=== PATIENT | female | born 1945 | race Caucasian/White ===

== ENCOUNTER 2019-02-21 09:52 | Inpatient (IN) | payer MEDICARE, OTHER ==
[~2019-02-21] VITALS: Ht 161.3 cm; Wt 54.5 kg
[~2019-02-21 09:52] MED LIST: CALC-854 PO; FEXO180T94 PO; FLUO20CA39 PO; FLUT16SP2 BOTHNARES; HYDR-4353 PO; METH-360 PO; OMEG-44 PO; PROP60CA37 PO; RED600TA PO; UBID200C37 PO; WALKERFR; [UNRECOGNIZED DRUG - CODE] PO
[2019-02-21] MEDS ORDERED: pantoprazole IV 80 MG in normal saline 100ml IV soln 100 ML IV ONE (10:05)
[2019-02-21] MEDS ORDERED: ondansetron/PF 4mg/2ml inj IV ONE (10:05)
[2019-02-21] MEDS ORDERED: normal saline 1000ML IV soln IVB ONE (10:05)
[2019-02-21] MEDS ORDERED: morphine 4 MG/ML inj SYRINge IV PRN (10:05)
[2019-02-21] MEDS ORDERED: pantoprazole IV 40 MG in normal saline 100ml IV soln 100 ML IV ONE ×2 (10:10→10:45)
[2019-02-21 10:24] LABS: BASOPHILS # (AUTO) 0.1 X10'3 (0-0.2); BASOPHILS % (AUTO) 0.3 % (0-1); EOSINOPHILS % (AUTO) 0.2 % (0-6); HEMATOCRIT 40.7 % (35.0-45.0); LYMPHOCYTES # (AUTO) 1.2 X10'3 (1.1-4.8); LYMPHOCYTES % (AUTO) 5.7 % (21-51); MEAN CORPUSCULAR HEMOGLOBIN 30.8 PG (27.0-31.0); MEAN CORPUSCULAR HGB CONC 34.3 g/dL (33.0-36.5); MEAN CORPUSCULAR VOLUME 89.7 FL (78-98); MEAN PLATELET VOLUME 8.1 FL (7.4-10.4); MONOCYTES # (AUTO) 1.7 X10'3 (0-0.9); MONOCYTES % (AUTO) 8.1 % (2-12); NEUTROPHILS # (AUTO) 17.7 X10'3 (1.8-7.7); NEUTROPHILS % (AUTO) 85.7 % (42-75); PLATELET COUNT 317 X10'3 (140-440); RED BLOOD COUNT 4.54 X10'6 (4.20-5.60); RED CELL DISTRIBUTION WIDTH 13.4 % (11.5-14.5); WHITE BLOOD COUNT 20.6 X10'3 (4.5-11.0)
[2019-02-21 10:42] LABS: ALANINE AMINOTRANSFERASE 20 U/L (12-78); ALBUMIN 3.7 G/DL (3.4-5.0); ALBUMIN/GLOBULIN RATIO 0.9 (1.1-1.5); ALKALINE PHOSPHATASE 71 IU/L (46-116); ANION GAP 12 (8-16); ASPARTATE AMINO TRANSFERASE 9 U/L (10-37); BILIRUBIN,TOTAL 0.8 MG/DL (0.1-1.0); BLOOD UREA NITROGEN 19 MG/DL (7-18); BUN/CREATININE RATIO 12.6 (6.6-38.0); CALCIUM 9.4 MG/DL (8.5-10.1); CHLORIDE 100 MMOL/L (99-107); CREATININE 1.51 MG/DL (0.40-0.90); GLUCOSE 142 MG/DL (70-104); POTASSIUM 4.3 MMOL/L (3.5-5.1); SODIUM 136 MMOL/L (135-145); TOTAL CARBON DIOXIDE 24.1 MMOL/L (24-32); eGFR 34 ML/MIN
--- NOTE | 2019-02-21 10:45 | NUR ---
PT BACK IN BED FROM CT, HOOKED UP TO MONITOR VITAL SIGNS
[2019-02-21] MEDS ORDERED: levoFLOXACIN-Levaquin 750MG/D5 150 ML IV ONE (10:50)
[2019-02-21] MEDS ORDERED: acetaminophen 325mg tablet PO ONE (11:25)
[2019-02-21] MEDS ORDERED: morphine 4 MG/ML inj SYRINge IV ONE (11:25)
[2019-02-21] MEDS ORDERED: mag hydrox/Alum hydrox/simeth 30ml oral suspension PO PRN (11:35)
[2019-02-21] MEDS ORDERED: magnesium hydroxide 30ml (MOM) UD suspension PO PRN (11:35)
[2019-02-21] MEDS ORDERED: acetaminophen 325mg tablet PO PRN (11:35)
[2019-02-21] MEDS ORDERED: HYDROcodone/acetaminophen 5mg/325mg tablet PO PRN (11:35)
[2019-02-21] MEDS ORDERED: ondansetron/PF 4mg/2ml inj IV PRN (11:35)
[2019-02-21] MEDS ORDERED: morphine 2 MG/ML inj. syringe IV PRN ×2 (11:35)
[2019-02-21] MEDS ORDERED: FLUO40CA PO ×2 (12:19→12:20)
[2019-02-21 13:57] VITALS: BP 133/43
[2019-02-21 15:59] LABS: CLARITY,URINE CLEAR (Clear); COLOR,URINE YELLOW (Yellow); GLUCOSE, URINE NEGATIVE (Neg); KETONES,URINE NEGATIVE (Neg); LEUKOCYTE ESTERASE ,URINE NEGATIVE (Neg); NITRITES, URINE NEGATIVE (Neg); OCCULT BLOOD,URINE SMALL (Neg); PROTEIN,URINE TRACE mg/dl (Neg); UA COLLECTION TYPE NON-SPECIFIED; UROBILINOGEN,URINE 0.2 E.U/dL (0.2-1.0)
[2019-02-21 16:06] LABS: BACTERIA,URINE NONE SEEN /HPF (Neg); FINE GRANULAR CAST 0-3 /LPF (NEGATIVE); HYALINE CASTS 0-3 /LPF (NEGATIVE); MUCUS STRANDS FEW /LPF (Neg); RBC,URINE 0-2 /HPF (0-2); SQUAMOUS EPITHELIAL CELL,UR NONE SEEN /LPF (FEW); WBC,URINE 0-4 /HPF (0-4)
[2019-02-21] MEDS: normal saline 1000ml 1,000 ML IV SCH ×2 (16:51→21:35)
[2019-02-21] MEDS: piperacillin/tazo 4.5gm/100ml 100 ML IV SCH (16:51)
[2019-02-21] MEDS: calcium carbonate/vitamin D3 tablet PO SCH (17:33)
--- NOTE | 2019-02-21 18:14 | NUR ---
Patient in room [facility]. I have received report from AVA Jackson and had the opportunity to ask questions and assume patient care.
[2019-02-21 18:15] VITALS: BP_SYST 144; BP_SYST 151; BP_SYST 165; BP_DIAS 47; BP_DIAS 53; BP_DIAS 60
--- NOTE | 2019-02-21 18:19 | NUR ---
Problems reprioritized. Patient report given, questions answered & plan of care reviewed with Vero ESCALANTE.
[2019-02-21] MEDS: temazepam 15mg capsule PO PRN (21:32)
[2019-02-21] MEDS: acetaminophen 325mg tablet PO PRN (21:32)
[2019-02-22 00:15] VITALS: BP 108/50
[2019-02-22] MEDS: piperacillin/tazo 4.5gm/100ml 100 ML IV SCH ×4 (00:46→23:58)
[2019-02-22] MEDS: normal saline 1000ml 1,000 ML IV SCH ×3 (02:28→21:37)
[2019-02-22 04:57] LABS: BASOPHILS # (AUTO) 0.1 X10'3 (0-0.2); BASOPHILS % (AUTO) 0.5 % (0-1); EOSINOPHILS # (AUTO) 0.1 X10'3 (0-0.9); EOSINOPHILS % (AUTO) 1.1 % (0-6); HEMATOCRIT 34.7 % (35.0-45.0); HEMOGLOBIN 11.6 g/dl (12.0-16.0); LYMPHOCYTES # (AUTO) 2.1 X10'3 (1.1-4.8); LYMPHOCYTES % (AUTO) 16.9 % (21-51); MEAN CORPUSCULAR HEMOGLOBIN 30.7 PG (27.0-31.0); MEAN CORPUSCULAR HGB CONC 33.5 g/dL (33.0-36.5); MEAN CORPUSCULAR VOLUME 91.5 FL (78-98); MEAN PLATELET VOLUME 8.1 FL (7.4-10.4); MONOCYTES % (AUTO) 8.3 % (2-12); NEUTROPHILS % (AUTO) 73.2 % (42-75); PLATELET COUNT 204 X10'3 (140-440); RED BLOOD COUNT 3.79 X10'6 (4.20-5.60); RED CELL DISTRIBUTION WIDTH 13.7 % (11.5-14.5); WHITE BLOOD COUNT 12.3 X10'3 (4.5-11.0)
[2019-02-22 05:03] LABS: ALBUMIN 2.6 G/DL (3.4-5.0); ANION GAP 8 (8-16); BLOOD UREA NITROGEN 12 MG/DL (7-18); BUN/CREATININE RATIO 10.7 (6.6-38.0); CALCIUM 8.5 MG/DL (8.5-10.1); CHLORIDE 109 MMOL/L (99-107); CREATININE 1.12 MG/DL (0.40-0.90); GLUCOSE 107 MG/DL (70-104); POTASSIUM 3.6 MMOL/L (3.5-5.1); SODIUM 143 MMOL/L (135-145); TOTAL CARBON DIOXIDE 25.8 MMOL/L (24-32); eGFR 48 ML/MIN
--- NOTE | 2019-02-22 06:25 | NUR ---
Patient in room [facility]. I have received report from AVA Pham and had the opportunity to ask questions and assume patient care.
[2019-02-22 06:30] VITALS: BP 139/62
--- NOTE | 2019-02-22 06:32 | NUR ---
Problems reprioritized. Patient report given, questions answered & plan of care reviewed with AVA Stover.
[2019-02-22] MEDS: FLUoxetine 20mg capsule PO SCH (08:54)
[2019-02-22] MEDS: propranolol LA 60 MG cap.SA.24H PO SCH (08:54)
[2019-02-22] MEDS: calcium carbonate/vitamin D3 tablet PO SCH ×3 (08:54→17:24)
[2019-02-22] MEDS ORDERED: pneumococcal 23-VAL P-sac vacc 25 mcg/0.5ml vial IMVAC ONE (10:00)
[2019-02-22 11:00] VITALS: BP 146/62
[2019-02-22 11:05] LABS: HEMOGLOBIN A1C 5.9 % (4.5-6.2)
[2019-02-22 18:05] VITALS: BP 160/63
--- NOTE | 2019-02-22 18:05 | NUR ---
Problems reprioritized. Patient report given, questions answered & plan of care reviewed with AVA Pham.
--- NOTE | 2019-02-22 18:20 | NUR ---
Patient in room [facility]. I have received report from AVA Stover and had the opportunity to ask questions and assume patient care.
[2019-02-22] MEDS: acetaminophen 325mg tablet PO PRN (19:37)
[2019-02-22] MEDS: temazepam 15mg capsule PO PRN (21:37)
[2019-02-23 00:36] VITALS: BP 132/81
[2019-02-23 04:43] LABS: BASOPHILS % (AUTO) 0.4 % (0-1); EOSINOPHILS # (AUTO) 0.2 X10'3 (0-0.9); EOSINOPHILS % (AUTO) 2.1 % (0-6); HEMATOCRIT 32.5 % (35.0-45.0); HEMOGLOBIN 11.1 g/dl (12.0-16.0); LYMPHOCYTES # (AUTO) 1.5 X10'3 (1.1-4.8); LYMPHOCYTES % (AUTO) 17.7 % (21-51); MEAN CORPUSCULAR HEMOGLOBIN 30.9 PG (27.0-31.0); MEAN CORPUSCULAR HGB CONC 34.3 g/dL (33.0-36.5); MEAN CORPUSCULAR VOLUME 90.1 FL (78-98); MEAN PLATELET VOLUME 7.8 FL (7.4-10.4); MONOCYTES # (AUTO) 0.7 X10'3 (0-0.9); MONOCYTES % (AUTO) 8.5 % (2-12); NEUTROPHILS % (AUTO) 71.3 % (42-75); PLATELET COUNT 208 X10'3 (140-440); RED BLOOD COUNT 3.61 X10'6 (4.20-5.60); RED CELL DISTRIBUTION WIDTH 13.4 % (11.5-14.5); WHITE BLOOD COUNT 8.4 X10'3 (4.5-11.0)
[2019-02-23 05:00] LABS: ALBUMIN 2.5 G/DL (3.4-5.0); ANION GAP 6 (8-16); BLOOD UREA NITROGEN 9 MG/DL (7-18); CALCIUM 8.3 MG/DL (8.5-10.1); CHLORIDE 109 MMOL/L (99-107); CREATININE 1.12 MG/DL (0.40-0.90); GLUCOSE 110 MG/DL (70-104); SODIUM 144 MMOL/L (135-145); TOTAL CARBON DIOXIDE 28.9 MMOL/L (24-32); eGFR 48 ML/MIN
--- NOTE | 2019-02-23 06:15 | NUR ---
Patient in room [facility]. I have received report from AVA Pham and had the opportunity to ask questions and assume patient care.
--- NOTE | 2019-02-23 06:19 | NUR ---
Problems reprioritized. Patient report given, questions answered & plan of care reviewed with AVA Stover.
[2019-02-23 06:30] VITALS: BP 143/65
[2019-02-23] MEDS: FLUoxetine 20mg capsule PO SCH (08:41)
[2019-02-23] MEDS: calcium carbonate/vitamin D3 tablet PO SCH (08:41)
[2019-02-23] MEDS: piperacillin/tazo 4.5gm/100ml 100 ML IV SCH (08:41)
[2019-02-23] MEDS: propranolol LA 60 MG cap.SA.24H PO SCH (08:41)
[2019-02-23] MEDS: normal saline 1000ml 1,000 ML IV SCH (08:41)
[2019-02-23] MEDS: acetaminophen 325mg tablet PO PRN (08:48)
[2019-02-23] MEDS ORDERED: METR500T PO (10:13)
[2019-02-23] MEDS ORDERED: LEVO500T2 PO (10:13)
[2019-02-23 11:00] VITALS: BP 143/62
--- NOTE | 2019-02-23 12:30 | NUR ---
DC inst provided to pt. IV DC'd, tip intact. All belongings sent w/pt. Pt ambulated to front lobby.
== END 2019-02-23 12:32 | disposition home or self-care (01) | DRG 391 ==
LOC: ER 09:53 → ED HOLD 11:35 → CANBEDREQ 11:50 → EDBEDREQ 12:19 → SUR 3N 13:40
PROVIDERS: ADMIT Internal Medicine; ATTEND Internal Medicine
PROC: 3E0234Z Introduction of Serum, Toxoid and Vaccine into Muscle, Percutaneous Approach (ICD-10-PCS; principal; 2019-02-22)
DX: A09 Infectious gastroenteritis and colitis, unspecified (principal); N17.0 Acute kidney failure with tubular necrosis; K92.1 Melena; E11.9 Type 2 diabetes mellitus without complications; F32.9 Major depressive disorder, single episode, unspecified; G89.29 Other chronic pain; R03.0 Elevated blood-pressure reading, without diagnosis of hypertension; Z79.899 Other long term (current) drug therapy; Z23 Encounter for immunization; Z88.8 Allergy status to other drugs, medicaments and biological substances; Z79.82 Long term (current) use of aspirin
CPT/HCPCS: 36415; 74176; 80048; 80053; 81001; 83036; 83605; 84145; 85025; 85610; 86885; 86900; 86901; 87040; 87081; 90732; 96365; 96375; 99285; C9113; G0378; J1956; J2405; J2543; J7030

== ENCOUNTER → 2021-04-20 | Outpatient (CLI) | payer MEDICARE, OTHER ==
[~2021-04-20] MED LIST changes: -FEXO180T94 PO; -FLUO20CA39 PO; +FLUO40CA PO; -FLUT16SP2 BOTHNARES; -HYDR-4353 PO; -METH-360 PO; -OMEG-44 PO; -RED600TA PO; -UBID200C37 PO; -WALKERFR; -[UNRECOGNIZED DRUG - CODE] PO
== END | disposition home or self-care (01) ==
LOC: VAS 13:19
PROVIDERS: ATTEND Internal Medicine
DX: I65.23 Occlusion and stenosis of bilateral carotid arteries (principal)
CPT/HCPCS: 93880

== ENCOUNTER 2021-05-05 08:19 | Outpatient (CLI) | payer MEDICARE, OTHER ==
[2021-05-04 10:33] LABS: ALBUMIN 3.5 G/DL (3.4-5.0); ANION GAP 7 (8-16); BLOOD UREA NITROGEN 21 MG/DL (7-18); CALCIUM 8.5 MG/DL (8.5-10.1); CHLORIDE 109 MMOL/L (99-107); CREATININE 0.84 MG/DL (0.40-0.90); GLUCOSE 89 MG/DL (70-104); POTASSIUM 4.4 MMOL/L (3.5-5.1); SODIUM 143 MMOL/L (135-145); TOTAL CARBON DIOXIDE 26.9 MMOL/L (24-32); eGFR 66 ML/MIN
[2021-05-05] MEDS ORDERED: iohexol 350MG/ML 100ml bottle IV ONE (09:01)
== END 2021-05-05 23:59 | disposition home or self-care (01) ==
LOC: RAD 08:19
PROVIDERS: ATTEND Surgery
DX: Z01.818 Encounter for other preprocedural examination (principal); I65.23 Occlusion and stenosis of bilateral carotid arteries; I67.2 Cerebral atherosclerosis; I70.8 Atherosclerosis of other arteries
CPT/HCPCS: 36415; 70498; 80048; Q9967

== ENCOUNTER 2021-06-01 14:02 | Inpatient (IN) | payer MEDICARE, OTHER ==
[~2021-06-01] VITALS: Ht 160 cm; Wt 53.4 kg
[2021-06-01] VITALS (8 sets, daily range): BP systolic 83–170; BP diastolic 37–77
[2021-06-01] MEDS ORDERED: diphenhydrAMINE 25mg capsule PO PRN ×2 (14:25→20:00)
[2021-06-01] MEDS ORDERED: LORazepam 0.5 MG tablet PO PRN ×2 (14:25→20:00)
[2021-06-01 15:01] LABS: APTT 23 SECONDS (22-32)
[2021-06-01 15:06] LABS: ALBUMIN 3.8 G/DL (3.4-5.0); ANION GAP 6 (8-16); BASOPHILS # (AUTO) 0.1 X10'3 (0-0.2); BLOOD UREA NITROGEN 24 MG/DL (7-18); CALCIUM 9.2 MG/DL (8.5-10.1); CHLORIDE 104 MMOL/L (99-107); CREATININE 0.75 MG/DL (0.40-0.90); EOSINOPHILS # (AUTO) 0.2 X10'3 (0-0.9); EOSINOPHILS % (AUTO) 2.6 % (0-6); GLUCOSE 105 MG/DL (70-104); HEMOGLOBIN 13.6 g/dl (12.0-16.0); LYMPHOCYTES # (AUTO) 1.9 X10'3 (1.1-4.8); LYMPHOCYTES % (AUTO) 25.7 % (21-51); MEAN CORPUSCULAR HEMOGLOBIN 29.9 PG (27.0-31.0); MEAN CORPUSCULAR HGB CONC 33.2 g/dL (33.0-36.5); MEAN CORPUSCULAR VOLUME 90.2 FL (78-98); MEAN PLATELET VOLUME 7.9 FL (7.4-10.4); MONOCYTES # (AUTO) 0.7 X10'3 (0-0.9); MONOCYTES % (AUTO) 9.8 % (2-12); NEUTROPHILS # (AUTO) 4.5 X10'3 (1.8-7.7); NEUTROPHILS % (AUTO) 60.9 % (42-75); PLATELET COUNT 283 X10'3 (140-440); POTASSIUM 3.9 MMOL/L (3.5-5.1); RED BLOOD COUNT 4.55 X10'6 (4.20-5.60); RED CELL DISTRIBUTION WIDTH 13.3 % (11.5-14.5); SODIUM 136 MMOL/L (135-145); TOTAL CARBON DIOXIDE 26.5 MMOL/L (24-32); WHITE BLOOD COUNT 7.4 X10'3 (4.5-11.0); eGFR 75 ML/MIN
[2021-06-01] MEDS ORDERED: FOLI0.4T6 PO (15:06)
[2021-06-01] MEDS ORDERED: ATOR20TA66 PO (15:06)
[2021-06-01] MEDS ORDERED: POLOS EACHEYE (15:06)
[2021-06-01] MEDS ORDERED: CLOP75TA34 PO (15:06)
[2021-06-01] MEDS ORDERED: VALA500T41 PO (15:06)
[2021-06-01] MEDS ORDERED: Tumeric PO (15:06)
[2021-06-01] MEDS ORDERED: OMEG-79 PO (15:06)
[2021-06-01] MEDS ORDERED: TOBR5DRO57 RIGHTEYE (15:06)
[2021-06-01] MEDS ORDERED: CIDE300T3 (15:06)
[2021-06-01] MEDS ORDERED: ASPI-1264 PO (15:06)
[2021-06-01] MEDS: normal saline 1,000 ML IV SCH (15:43)
[2021-06-01] MEDS ORDERED: phenylephrine 10mg/ml inj. ONE (16:21)
[2021-06-01] MEDS ORDERED: heparin 1,000unit/ml 10ml vial 10 ML ONE (16:22)
[2021-06-01] MEDS ORDERED: iohexol 350 MG/1 ML 200ml bottle ONE (16:22)
[2021-06-01] MEDS ORDERED: atropine 0.1mg/ml 10ml syringe ONE (16:22)
[2021-06-01] MEDS ORDERED: LIDOcaine 1% (10mg/ml)w/preservative inj. 20ml MDV ONE (16:22)
[2021-06-01] MEDS ORDERED: DOPamine 400mg/D5W 250ml 250 ML IV ONE (16:41)
[2021-06-01] MEDS ORDERED: ondansetron/PF 4mg/2ml inj ONE (17:38)
[2021-06-01] MEDS ORDERED: clopidogrel 75mg tablet ONE (17:55)
--- NOTE | 2021-06-01 19:00 | NUR ---
PATIENT ADMITTED TO UNIT S/P CARDICA CATH. VS STABLE. RIGHT GROIN SOFT. NO HEMATOMA NOTED. DENIES BACK PAIN. POST CARDIAC CATH TEACHING REINFORCE. ALL SAFETY MEASURES IMPLEMENTED. WILL CONTINUE TO MONITOR.
[2021-06-01] MEDS ORDERED: normal saline 1,000 ML IV SCH (20:00)
[2021-06-01] MEDS ORDERED: pseudoephedrine 30mg tablet PO PRN (20:05)
[2021-06-01] MEDS ORDERED: proCHLORperazine 10 MG/2 ml inj IV PRN (20:05)
[2021-06-01] MEDS ORDERED: HYDROcodone/acetaminophen 5mg/325mg tablet PO PRN (20:05)
[2021-06-01] MEDS ORDERED: HYDROcodone/acetaminophen 10/325mg tab PO PRN (20:05)
[2021-06-01] MEDS ORDERED: OXAZEpam 15mg capsule PO PRN (20:05)
[2021-06-01] MEDS ORDERED: DOPamine 400mg/D5W 250ml 250 ML IV SCH (20:05)
[2021-06-01] MEDS ORDERED: acetaminophen 325mg tablet PO PRN (20:05)
[2021-06-01] MEDS ORDERED: hydrALAZINE 20mg/ml inj. IV PRN (20:05)
[2021-06-02] MEDS: normal saline 1,000 ML IV SCH (00:25)
[2021-06-02 02:00] VITALS: BP 100/49
[2021-06-02 06:00] VITALS: BP 119/32
--- NOTE | 2021-06-02 06:00 | NUR ---
Patient in room [facility] 3014. I have received report from Nahomy ESCALANTE and had the opportunity to ask questions and assume patient care.
[2021-06-02] MEDS ORDERED: tobramycin 0.3% 5ml ophthalmic drops RIGHTEYE PRN (07:55)
[2021-06-02] MEDS ORDERED: PROP60TA19 PO (07:55)
[2021-06-02] MEDS ORDERED: valacyclovir 500mg tablet PO PRN (07:55)
[2021-06-02] MEDS ORDERED: aspirin 325mg tablet PO SCH (08:00)
[2021-06-02] MEDS ORDERED: FLUoxetine 20mg capsule PO SCH (08:00)
[2021-06-02] MEDS ORDERED: calcium carbonate/vitamin D3 tablet PO SCH (08:00)
[2021-06-02] MEDS ORDERED: clopidogrel 75mg tablet PO SCH (08:00)
[2021-06-02] MEDS ORDERED: folic acid 1mg tablet PO SCH (08:00)
[2021-06-02] MEDS ORDERED: atorvastatin 20mg tablet PO SCH (08:00)
[2021-06-02] MEDS ORDERED: propranolol 40mg tablet PO SCH (08:01)
[2021-06-02] MEDS ORDERED: propranolol 10mg tablet PO SCH (08:02)
[2021-06-02] MEDS ORDERED: OMEGA-3/DHA/EPA/FISH OIL 1 EACH CAPSULE.DR PO SCH (08:30)
--- NOTE | 2021-06-02 11:57 | NUR ---
Patient stable for discharge per Dr orders. All discharge instructions reviewed with patient, and all questions answered. All belongings collected and sent with patient. PIV discontinued, cannula intact. Tele discontinued. Wheeled to lobby via nursing staff and picked up in private vehicle by family.
--- NOTE | 2021-06-04 10:07 | NUR ---
Case Management DC follow up: Spoke w/pt via telephone. s/p: Angio w/stent LCA. R groin cath. Pt Reports:Feeling pretty sore, up and moving around more today 06/04/21. Denies: Acute/continuous CP, emergent SOB, resp distress, orthopnea, dyspnea, N/V, hematemesis, weakness, vertigo, syncope episodes, orthostatic hypotension, APPLE, blurry vision, s/s stroke/FAST, dysphagia, bladder pain, dysuria, polyuria, hematuria, retention, abd pain/distention, hematochezia, melena, unexplained bruising, bleeding, fever, chills. Pt denies BLE edema, specifically to RLE; denies oozing, excess swelling, warmth to cath insertion site, R groin. Verbalizes understanding of Rx, why prescribed; continues/resumes current Rx as ordered, continue plavix as ordered. denies ase r/t polypharmacy. Verbalizes compliance w/aftercare. Verbalizes understanding of s/s that warrant -11/ER visit for further evaluation. Pt acknowledges need to schedule/confirm/keep follow up appt w/ Dr Pineda 07/13/21 [id number]; PCP Russ, will call to schedule. Needs met, questions/concerns addressed at DC; No further questions/concerns r/t recent hospital stay and/or DC status at this time.
== END 2021-06-02 11:38 | disposition home or self-care (01) | DRG 36 ==
LOC: SSTAY O 14:02 → PCU 3S 17:40
PROVIDERS: ADMIT Internal Medicine Interventional Cardiology; ATTEND Internal Medicine Interventional Cardiology
PROC: 037J3DZ Dilation of Left Common Carotid Artery with Intraluminal Device, Percutaneous Approach (ICD-10-PCS; principal; 2021-06-01)
PROC: B3141ZZ Fluoroscopy of Left Common Carotid Artery using Low Osmolar Contrast (ICD-10-PCS; 2021-06-01)
PROC: B3101ZZ Fluoroscopy of Thoracic Aorta using Low Osmolar Contrast (ICD-10-PCS; 2021-06-01)
DX: I65.23 Occlusion and stenosis of bilateral carotid arteries (principal); E11.9 Type 2 diabetes mellitus without complications; E78.5 Hyperlipidemia, unspecified; I10 Essential (primary) hypertension; I95.9 Hypotension, unspecified
CPT/HCPCS: 36415; 37215; 80048; 82948; 85025; 85610; 85730; 93005; A4620; A6258; C1725; C1760; C1769; C1876; C1884; C1887; C1894; G0378; J0461; J1265; J1644; J2370; J2405; J3490; J7030; Q0163; Q9967

== ENCOUNTER 2024-04-29 08:43 | Emergency (ER) | payer MEDICARE, OTHER ==
[~2024-04-29] VITALS: Ht 161.3 cm; Wt 53.0 kg
[~2024-04-29 08:43] MED LIST changes: +ASPI-1264 PO; +ATOR20TA66 PO; +CIDE300T3; +CLOP75TA34 PO; +FOLI0.4T6 PO; +OMEG-79 PO; -PROP60CA37 PO; +PROP60TA19 PO; +TOBR5DRO12 RIGHTEYE; +Tumeric PO; +VALA500T41 PO
[2024-04-29 08:47] VITALS: BP 187/88; PULSE 85; RESP 18; O2SAT 98
[2024-04-29 10:42] VITALS: TEMP 97.4
== END 2024-04-29 10:44 | disposition home or self-care (01) ==
LOC: ER 08:44
DX: M25.551 Pain in right hip (principal); E11.9 Type 2 diabetes mellitus without complications; E78.5 Hyperlipidemia, unspecified; I10 Essential (primary) hypertension; Z88.5 Allergy status to narcotic agent; Z88.8 Allergy status to other drugs, medicaments and biological substances; Z79.82 Long term (current) use of aspirin
CPT/HCPCS: 73502; 99284

== ENCOUNTER 2024-10-26 08:06 | Emergency (ER) | payer MEDICARE, OTHER ==
[~2024-10-26] VITALS: Ht 160 cm; Wt 49.8 kg
[2024-10-26 08:07] VITALS: BP 149/79; PULSE 92; RESP 16; TEMP 98; O2SAT 98
--- NOTE | 2024-10-26 09:16 | Physician Documentation ---
History of Present Illness ~ Chief Complaint: Bite-insect Stated Complaint: BEE STING Time Seen by MD: 08:17 Primary Medical Doctor: Russ RODRIGUEZ Stung by hornets to scalp several times this morning. Complaining of pain but no facial swelling, no difficulty breathing. No other complaints. Tetanus within 5 years?: Yes Medication Reconciliation Allergies: Coded Allergies: fentanyl (Verified Allergy, Unknown, 04/29/24) midazolam (Verified Allergy, Unknown, 04/29/24) gabapentin (Verified Adverse Reaction, Unknown, 04/29/24) hydromorphone (Verified Adverse Reaction, Unknown, GETS SICK, 04/29/24) Scheduled Aspirin* (Aspirin*), 1 TAB PO DAILY, (Reported) Atorvastatin Calcium (Atorvastatin Calcium), 1 TAB PO DAILY, (Reported) Calcium Citrate/Vitamin D3 (Citracal + D Maximum Caplet), 1 EACH PO BID, (Reported) Clopidogrel Bisulfate (Clopidogrel), 1 TAB PO DAILY, (Reported) Fluoxetine Hcl (Fluoxetine Hcl), 20 MG PO DAILY, (Reported) Folic Acid* (Folic Acid*), 1 MG PO DAILY, (Reported) [place]-3 Fatty Acids/Fish Oil (Fish Oil 1,000 Mg Softgel), 1 CAP PO DAILY, (Reported) Propranolol Hcl (Propranolol Hcl), 60 MG PO DAILY, (Reported) [Tumeric], Unknown Dose PO DAILY, (Reported) Scheduled PRN Tobramycin Sulfate 0.3% Opth.* (Tobrex 0.3% Opth.*), 1 DROP RIGHTEYE QID PRN for eye irritation, (Reported) Valacyclovir HCl (Valacyclovir), 1 TAB PO BID PRN for HERPES OUTBREAK, (Reported) Miscellaneous Medications Cider Vinegar (Apple Cider Vinegar), Unknown Dose, (Reported) Past Medical History Past Medical History: *GI/HEPATOBILIARY*, Diabetes Past Surgical History: noncontributory Patient History: Diabetes mellitus in father FATHER, , Age: 77, Cause: Heart attack, Onset:60 years & older FH: heart disease FATHER, , Age: 77, Cause: Heart attack, Onset:60 years & older Alcohol Use: None Drug Use: none Lives In: Home Review of Systems All Other Systems at this time: Reviewed and Negative Physical Exam Vital Signs: RN Vital Signs have been reviewed: Yes, Temperature: 98.0, Source: Temporal, Heart Rate: 92, Respiratory Rate: 16, BP: 149/79, Pulse Oximetry: 98, Weight: 49.800 Oxygen Flow Rate: 0 Physical Exam HEENT: PERRL, moist oral mucosa, EOMI no lip or tongue swelling Pulmonary: No respiratory distress MSK: no deformity Skin: w/d/i, no rash Neuro: alert, nonfocal Psych: normal affect Progress Results/Orders Results/Orders Completed Orders - SOHAIL PIMENTEL MD Acetaminophen 325mg Tablet (Tylenol Tabl (10/26/24 08:20) Diphenhydramine Capsule (Benadryl Capsul (10/26/24 08:20) Medications Received in ER Medications (Trade) Dose Ordered Sig/Anabela Route PRN Reason Start Time Stop Time Status Last Admin Dose Admin (Tylenol tablet) 650 mg ONCE ONCE PO 10/26/24 08:20 10/26/24 08:21 DC 10/26/24 08:23 650 MG (Benadryl capsule) 25 mg ONCE ONCE PO 10/26/24 08:20 10/26/24 08:21 DC 10/26/24 08:23 25 MG Vital Signs 10/26/24 08:07 Temp 98.0 Pulse 92 Resp 16 B/P (MAP) 149/79 Pulse Ox 98 O2 Flow Rate 0 Medical Decision Making Findings 79 year old female with hymenoptera envenomation. Benadryl, tylenol, observed, discharged with return precautions Differential Dx:Considerations: Include: Abrasion, Anaphylaxis, Cellulitis, Insect envenomation, Urticaria Departure Disposition: 01 HOME / SELF CARE / HOMELESS Impression: Primary Impression: Hymenoptera sting Condition: Stable Discharge Instructions: Insect Bite, Adult, [id number] Referrals: NO PRIMARY CARE PROVIDER (PCP) Education Educated: Patient Educated regarding: diagnosis, treatment, prognosis, need for follow up Signature Scribe Signature: . Attestation: . SOHAIL PIMENTEL MD Oct 26, 2024 09:16
== END 2024-10-26 09:58 | disposition home or self-care (01) ==
LOC: ER 08:07
DX: T63.441A Toxic effect of venom of bees, accidental (unintentional), initial encounter (principal); E11.9 Type 2 diabetes mellitus without complications; Z88.5 Allergy status to narcotic agent; Z88.8 Allergy status to other drugs, medicaments and biological substances; Y92.89 Other specified places as the place of occurrence of the external cause
CPT/HCPCS: 99283; Q0163

== ENCOUNTER 2025-02-06 07:55 | Emergency (ER) | payer MEDICARE, OTHER ==
[~2025-02-06] VITALS: Ht 160 cm; Wt 51.3 kg
--- NOTE | 2025-02-06 08:14 | Physician Documentation ---
History of Present Illness General Chief Complaint: Shoulder pain Stated Complaint: L SHOULDER PAIN Time Seen by MD: 08:12 Primary Medical Doctor: Russ Medication Reconciliation Allergies: Coded Allergies: fentanyl (Verified Allergy, Unknown, 02/06/25) midazolam (Verified Allergy, Unknown, 02/06/25) gabapentin (Verified Adverse Reaction, Unknown, 02/06/25) hydromorphone (Verified Adverse Reaction, Unknown, GETS SICK, 02/06/25) Scheduled Aspirin* (Aspirin*), 1 TAB PO DAILY, (Reported) Atorvastatin Calcium (Atorvastatin Calcium), 1 TAB PO DAILY, (Reported) Calcium Citrate/Vitamin D3 (Citracal + D Maximum Caplet), 1 EACH PO BID, (Reported) Clopidogrel Bisulfate (Clopidogrel), 1 TAB PO DAILY, (Reported) Fluoxetine Hcl (Fluoxetine Hcl), 20 MG PO DAILY, (Reported) Folic Acid* (Folic Acid*), 1 MG PO DAILY, (Reported) [place]-3 Fatty Acids/Fish Oil (Fish Oil 1,000 Mg Softgel), 1 CAP PO DAILY, (Reported) Propranolol Hcl (Propranolol Hcl), 60 MG PO DAILY, (Reported) [Tumeric], Unknown Dose PO DAILY, (Reported) Scheduled PRN Tobramycin Sulfate 0.3% Opth.* (Tobrex 0.3% Opth.*), 1 DROP RIGHTEYE QID PRN for eye irritation, (Reported) Valacyclovir HCl (Valacyclovir), 1 TAB PO BID PRN for HERPES OUTBREAK, (Reported) Miscellaneous Medications Cider Vinegar (Apple Cider Vinegar), Unknown Dose, (Reported) Past Medical History Past Medical History: *GI/HEPATOBILIARY*, Diabetes Past Surgical History: noncontributory Smoking: Non-Smoker Alcohol Use: None Drug Use: none Lives In: Home Physical Exam Physical Exam Vital Signs: Temperature: 97.8, Source: Temporal, Heart Rate: 86, Respiratory Rate: 16, BP: 193/83, Pulse Oximetry: 99, Weight: 51.300 Oxygen Flow Rate: 0 Progress Results/Orders Results/Orders Orders - OHLEIGHANN DICKINSON MD Shoulder, Complete (Min 2 Vws) (02/06/25 08:04) Completed Orders - LEIGHANN GRANADO MD Shoulder, Complete (Min 2 Vws) (02/06/25 08:04) Vital Signs 02/06/25 07:59 Temp 97.8 Pulse 86 Resp 16 B/P (MAP) 193/83 Pulse Ox 99 O2 Flow Rate 0 Departure Referrals: NO PRIMARY CARE PROVIDER (PCP) IAL,LEIGHANN Rojo MD Feb 06, 2025 08:14
--- NOTE | 2025-02-06 08:31 | RADIOLOGY REPORT ---
PROCEDURE: Left shoulder radiographs. INDICATION: LEFT Shoulder Pain TECHNIQUE: 2 views of the left shoulder were obtained. COMPARISON: None FINDINGS: There is no evidence of fracture or dislocation. Joint spaces are maintained. The soft tissues are unremarkable. IMPRESSION: 1. No fracture or dislocation.
--- NOTE | 2025-02-06 08:58 | Physician Documentation ---
History of Present Illness ~ Chief Complaint: Shoulder pain Stated Complaint: L SHOULDER PAIN Time Seen by MD: 08:45 Primary Medical Doctor: Russ RODRIGUEZ If any 79-year-old female presents to the ED with a complaint of left shoulder pain x2 days. She states she does not remember specific injury but states that she was guarding the for a longer length of time the day prior to her initial symptoms. Now she states that she has left shoulder pain and decreased range of motion. Denies any numbness or tingling or neck pain Day of Onset: Feb 06, 2025 Tetanus within 5 years?: Yes Medication Reconciliation Allergies: Coded Allergies: fentanyl (Verified Allergy, Unknown, 02/06/25) midazolam (Verified Allergy, Unknown, 02/06/25) gabapentin (Verified Adverse Reaction, Unknown, 02/06/25) hydromorphone (Verified Adverse Reaction, Unknown, GETS SICK, 02/06/25) Scheduled Aspirin* (Aspirin*), 1 TAB PO DAILY, (Reported) Atorvastatin Calcium (Atorvastatin Calcium), 1 TAB PO DAILY, (Reported) Calcium Citrate/Vitamin D3 (Citracal + D Maximum Caplet), 1 EACH PO BID, (R eported) Clopidogrel Bisulfate (Clopidogrel), 1 TAB PO DAILY, (Reported) Diclofenac Sodium (Voltaren Arthritis Pain), 1 APPLIC TOP BID Fluoxetine Hcl (Fluoxetine Hcl), 20 MG PO DAILY, (Reported) Folic Acid* (Folic Acid*), 1 MG PO DAILY, (Reported) [place]-3 Fatty Acids/Fish Oil (Fish Oil 1,000 Mg Softgel), 1 CAP PO DAILY, (Reported) Propranolol Hcl (Propranolol Hcl), 60 MG PO DAILY, (Reported) [Tumeric], Unknown Dose PO DAILY, (Reported) Scheduled PRN Tobramycin Sulfate 0.3% Opth.* (Tobrex 0.3% Opth.*), 1 DROP RIGHTEYE QID PRN for eye irritation, (Reported) Valacyclovir HCl (Valacyclovir), 1 TAB PO BID PRN for HERPES OUTBREAK, (Reported) Miscellaneous Medications Cider Vinegar (Apple Cider Vinegar), Unknown Dose, (Reported) Past Medical History Past Medical History: *GI/HEPATOBILIARY*, Diabetes Past Surgical History: noncontributory Patient History: Diabetes mellitus in father FATHER, , Age: 77, Cause: Heart attack, Onset:60 years & older FH: heart disease FATHER, , Age: 77, Cause: Heart attack, Onset:60 years & older Alcohol Use: None Drug Use: none Lives In: Home Review of Systems All Other Systems at this time: Reviewed and Negative ROS As stated above in the HPI, otherwise all systems are reviewed and negative. Physical Exam Vital Signs: Temperature: 97.8, Source: Temporal, Heart Rate: 86, Respiratory Rate: 16, BP: 193/83, Pulse Oximetry: 99, Weight: 51.300 Oxygen Flow Rate: 0 Physical Exam General: Alert, no apparent distress. Respiratory: Lungs clear, no respiratory distress. Cardiovascular: Regular rate and rhythm, no murmurs. extermities: Positive drop-arm test in the left upper extremity. Decreased range of motion pain with range of motion Neurologic: Oriented x4. Psychiatric: Normal mood and affect. Skin: Normal color, warm and dry. No edema, no ecchymosis. Progress Results/Orders Results/Orders Vital Signs 02/06/25 02/06/25 07:59 09:16 Temp 97.8 97.8 Pulse 86 70 Resp 16 18 B/P (MAP) 193/83 127/87 Pulse Ox 99 99 O2 Flow Rate 0 Medical Decision Making Additional information obtaine: N/A Findings This patient presents with a all the clinical indications for rotator cuff tendinitis. I do not suspect fracture based on my interpretation of her shoulder x-ray.. I am going to discharge her with a advised to use Voltaren gel your gel and to follow up with the primary care to request a referral to go to physical therapy Differential Dx:Considerations: Include: AC separation, Adhesive capsulitis, arthritis, Bicipital tendonitis, Calcific tendonitis, Cervical disc disease, Contusion, Dislocation, Fracture: Humerus, Fracture: Scapula, Fracture: Clavicle, Gallbladder Disease, Hematoma, Impingement syndrome, Myocardial infarction, Neurovascular Injury, Rotator cuff injury, SC dislocation, Sprain, Subacromial bursitis, other Departure Disposition: 01 HOME / SELF CARE / HOMELESS Impression: Primary Impression: Shoulder pain Condition: Stable Discharge Instructions: Shoulder Pain Additional Instructions: As discussed I suspect that you have rotator cuff tendinitis in your left shoulder. The best treatment for this is anti-inflammatories and physical therapy which you may obtain a referral for from your primary care Referrals: NO PRIMARY CARE PROVIDER (PCP) Prescriptions Diclofenac Sodium (Voltaren Arthritis Pain) 1 % Gel..gram. 1 APPLIC TOP BID for pain for 10 Days, #30 GM Prov: TUNG GUTIERREZ NP 02/06/25 Education Educated: Patient Signature Scribe Signature: f Attestation: Scribed for Tung Gutierrez [employer] by Tung Gutierrez - KIKE . 02/06/25 18:15 TUNG GUTIERREZ NP Feb 06, 2025 08:58
[2025-02-06] MEDS ORDERED: DICL20GE TOP (08:59)
[2025-02-06 09:16] VITALS: BP 127/87; PULSE 70; RESP 18; TEMP 97.8; O2SAT 99
== END 2025-02-06 09:16 | disposition home or self-care (01) ==
LOC: ER 07:56
DX: M25.512 Pain in left shoulder (principal); E11.9 Type 2 diabetes mellitus without complications; Z88.5 Allergy status to narcotic agent; Z88.8 Allergy status to other drugs, medicaments and biological substances; Z79.82 Long term (current) use of aspirin
CPT/HCPCS: 73030; 99283